=== PATIENT | male | born 1950 | race Caucasian/White ===

== ENCOUNTER 2024-06-30 08:35 | Day surgery (SDC) | payer MEDICARE, BC ==
--- NOTE | 2024-06-29 22:44 | P.GSHP ---
History of Present Illness H&P Date: 06/29/24 Chief Complaint: Urinary frequency and urgency The patient is a 74-year-old white male with a long history of voiding symptoms, for which he has taken tamsulosin since at least 2016. Recently, his voiding symptoms have worsened. Specifically, he states that he voids every 1-2 hours (day and night), and experiences urinary urgency with occasional urge incontinence. He reports a weak urinary stream, requiring that he sit to void, and he also reports intermittency and straining. Bladder emptying is complete. Cystoscopy shows complete prostatic occlusion with a by lobar configuration. He was offered the options of continued medical treatment versus surgery, and has elected to undergo the latter. Given the median lobe enlargement, it is felt that a transurethral resection of the prostate (TURP) is the most appropriate surgical treatment option for him. - Cardiovascular Cardiovascular: Reports high blood pressure - Genitourinary (Male) Genitourinary: Reports as per HPI Past Medical History Past Medical History: Chest Pain / Angina, GERD/Reflux, Hyperlipidemia, Hypertension Additional Past Medical History / Comment(s): Covid 08/2022, gout, BPH, no recent chest pain, occ. reflux History of Any Multi-Drug Resistant Organisms: None Reported Past Surgical History: Joint Replacement Additional Past Surgical History / Comment(s): Lt. TKA Past Anesthesia/Blood Transfusion Reactions: No Reported Reaction Smoking Status: Former smoker - Past Family History Mother Additional Family Medical History / Comment(s): mother age 96 Medications and Allergies Home Medications Medication Instructions Recorded Confirmed Type Ascorbic Acid [Vitamin C] 1 tab PO DAILY 06/27/24 06/27/24 History Atorvastatin [Lipitor] 10 mg PO HS 06/27/24 06/27/24 History Baclofen 10 mg PO BID 06/27/24 06/27/24 History Cholecalciferol (Vitamin D3) 1 tab PO DAILY 06/27/24 06/27/24 History [Vitamin D3 (125 MCG = 5,000 IU)] Cyanocobalamin (Vitamin B-12) 1 tab PO DAILY 06/27/24 06/27/24 History [Vitamin B-12] Magnesium Oxide [Magnesium] 1 tab PO DAILY 06/27/24 06/27/24 History Tamsulosin [Flomax] 1 tab PO HS 06/27/24 06/27/24 History Zinc Gluconate [Zinc] 1 tab PO DAILY 06/27/24 06/27/24 History allopurinoL [Zyloprim] 100 mg PO DAILY 06/27/24 06/27/24 History hydroCHLOROthiazide 25 mg PO DAILY 06/27/24 06/27/24 History lisinopriL 40 mg PO DAILY 06/27/24 06/27/24 History metFORMIN HCL 1,000 mg PO BID 06/27/24 06/27/24 History traMADol HCL 50 mg PO BID 06/27/24 06/27/24 History Allergies Allergy/AdvReac Type Severity Reaction Status Date / Time codeine Allergy Syncope Verified 06/27/24 16:20 Surgical - Exam - General well developed, well nourished, no distress - Respiratory normal respiratory effort - Genitourinary normal penis with no external lesions, testicles non-tender - Rectum Rectum: normal sphincter tone, no masses, other (Prostate mildly enlarged and smooth) - Psychiatric oriented to time, oriented to person, oriented to place, speech is normal, memory intact Assessment and Plan (1) Benign prostatic hyperplasia with lower urinary tract symptoms Status: Acute Code(s): N40.1 - BENIGN PROSTATIC HYPERPLASIA WITH LOWER URINARY TRACT SYMP SNOMED Code(s): 987171807 Plan: Cystoscopy, TURP. The procedure has been reviewed in detail with the patient. He has been made aware of potential risks, which include anesthesia, bleeding, infection, urethral stricture, vesical neck contracture, urinary incontinence, erectile dysfunction, retrograde ejaculation, and persistent voiding symptoms.
[~2024-06-30 08:35] MED LIST: fentaNYL (PF) 50 MCG/ML 2 ML AMP IV PRN
[2024-06-30] MEDS: IV FLUID CONTINUATION 1,000 ML IV ONE (09:26)
[2024-06-30] MEDS: LACTATED RINGERS 1,000 ML IV SCH (09:29)
[2024-06-30] MEDS: ONDANSETRON 4 MG/2 ML VIAL IVP STA (09:30)
[2024-06-30] MEDS: DEXAMETHASONE SOD PHOSPHATE 4 MG/ML 1 ML VIAL IVP STA (09:31)
[2024-06-30] MEDS ORDERED: diphenhydrAMINE 50 MG/ML 1 ML VIAL ONE (10:03)
[2024-06-30] MEDS ORDERED: MIDAZOLAM 2 MG/2 ML VIAL ONE (10:03)
[2024-06-30] MEDS ORDERED: PROPOFOL 10 MG/ML 20 ML VIAL IV ONE (10:03)
[2024-06-30] MEDS ORDERED: fentaNYL (PF) 50 MCG/ML 2 ML AMP ONE (10:03)
[2024-06-30] MEDS: ceFAZolin 3 GM in SODIUM CHLORIDE 0.9% 100 ML IVPB PRN (10:08)
--- NOTE | 2024-06-30 11:39 | P.OP ---
Date of Procedure: 06/30/24 Preoperative Diagnosis: BPH with obstruction Postoperative Diagnosis: Same Procedure(s) Performed: Cystoscopy, bipolar transurethral resection of prostate (TURP) Anesthesia: spinal Surgeon: Joseph Brody Estimated Blood Loss (ml): 20 IV fluids (ml): 400 Pathology: other (Prostate chips) Condition: stable Disposition: PACU Indications for Procedure: The patient is a 74-year-old white male with a long history of voiding symptoms, for which he has taken tamsulosin since at least 2017. Recently, his voiding symptoms have worsened. Specifically, he states that he voids every 1-2 hours (day and night), and experiences urinary urgency with occasional urge incontinence. He reports a weak urinary stream, requiring that he sit to void, and he also reports intermittency and straining. Bladder emptying is complete. Cystoscopy shows complete prostatic occlusion with a by lobar configuration. He was offered the options of continued medical treatment versus surgery, and has elected to undergo the latter. Given the median lobe enlargement, it is felt that a transurethral resection of the prostate (TURP) is the most appropriate surgical treatment option for him. Operative Findings: Trilobar BPH, completely obstructing. Description of Procedure: The patient was taken in the operating room and placed in the dorsolithotomy position after being given a spinal anesthetic. The external genitalia was prepped and draped sterilely. The 25-[place] ACMI resectoscope sheath was introduced into the bladder under direct vision. The bladder was inspected. Both ureteral orifices were of normal anatomic location and configuration. No tumors or foreign bodies were seen. Examination of the prostate revealed complete obstruction with a trilobar configuration. Using the bipolar cutting loop, the median lobe was resected along with the floor of the prostate, up to the verumontanum. Next, the lateral lobes were resected down to the surgical capsule, with care taken to spare the vesical neck fibers. The resection of the floor of the prostate was then completed, followed by resection of the remaining anterior tissue. The residual apical tissue was then carefully resected, with care taken to avoid injury to the external urinary sphincter. The resection was carried down to the surgical capsule in all 4 quadrants. The prostatic fossa was then carefully examined, and any areas of bleeding were controlled with electrocautery. Excellent hemostasis was attained. The resectoscope was withdrawn into the bulbous urethra. The external urinary sphincter remained intact. The prostatic fossa was open. All prostate chips were removed from the bladder. These were saved and sent for pathologic examination. The resectoscope was removed, and a 20 [place] Zamora catheter was placed. The return was essentially clear. The patient tolerated the procedure well was taken to the recovery room in stable condition.
[2024-06-30 11:49] VITALS: RESP 16; TEMP 97
[2024-06-30 13:44] LABS: Glucose,Whole Blood 179 mg/dL (70-110)
[2024-06-30 14:04] VITALS: BP 139/75; PULSE 74
== END 2024-06-30 15:21 | disposition home or self-care (01) ==
LOC: OR 08:35
PROVIDERS: ATTEND Urology
DX: N40.1 Benign prostatic hyperplasia with lower urinary tract symptoms (principal); N13.8 Other obstructive and reflux uropathy; N40.3 Nodular prostate with lower urinary tract symptoms; N39.41 Urge incontinence; R39.16 Straining to void; R39.12 Poor urinary stream; I10 Essential (primary) hypertension; I20.9 Angina pectoris, unspecified; E78.5 Hyperlipidemia, unspecified; I71.43 Infrarenal abdominal aortic aneurysm, without rupture; K21.9 Gastro-esophageal reflux disease without esophagitis; Z79.84 Long term (current) use of oral hypoglycemic drugs; Z79.891 Long term (current) use of opiate analgesic; Z79.899 Other long term (current) drug therapy; Z87.891 Personal history of nicotine dependence; Z96.652 Presence of left artificial knee joint; Z88.5 Allergy status to narcotic agent
CPT/HCPCS: 52601; J1100; J0690; J2405